=== PATIENT | female | born 1935 | race American Indian/Alaskan Native ===

== ENCOUNTER 2018-10-06 10:16 | Outpatient (CLI) | payer MEDICARE | END 2018-10-06 10:17 | disposition home or self-care (01) | LOC: C.MAMMO 10:16 | DX: Z12.31 Encounter for screening mammogram for malignant neoplasm of breast (principal) ==

== ENCOUNTER 2018-11-03 10:10 | Outpatient (CLI) | payer MEDICARE | END 2018-11-03 10:11 | disposition home or self-care (01) | LOC: C.MAMMO 10:10 | DX: R92.8 Other abnormal and inconclusive findings on diagnostic imaging of breast (principal) ==